=== PATIENT | female | born 1960 | race Caucasian/White ===

== ENCOUNTER 2019-11-15 14:57 | Outpatient (CLI) | payer BC, SELFPAY ==
--- NOTE | 2019-11-15 10:58 | DI.RAD_ITS ---
EXAM: XR CHEST 2V PA LATERAL CLINICAL HISTORY: SUPRACLAVICULAR LYMPHADENOPATHY, R59.0 TECHNIQUE: 2D digital imaging was performed. COMPARISON: No exams were available for comparison FINDINGS: The heart is not enlarged. The lungs are clear and well expanded. No pleural effusion seen. Mediastin al contours appear intact. IMPRESSION: Normal chest In the presence suspected supraclavicular lymphadenopathy, additional evaluation with neck and chest CT should be considered for further evaluation.
== END 2019-11-15 15:17 ==
PROVIDERS: PCP Physician Assistant; Visit Provider Physician Assistant
DX: R59.0 Localized enlarged lymph nodes (principal)
CPT/HCPCS: 71046

== ENCOUNTER 2019-12-30 01:54 | Outpatient (CLI) | payer BC, SELFPAY ==
--- NOTE | 2019-12-30 | DI.CT_ITS ---
EXAM: CT NECK W CLINICAL HISTORY: SUPRACLAVICULAR LYMPHADENOPATHY,R59.0. TECHNIQUE: Imaging Protocol: Axial computed tomography images with coronal and sagittal reformatted images were created and reviewed. CONTRAST MATERIAL: Intravenous: Omnipaque 350 Contrast volume:100 mL COMPARISON: No exams were available for comparison FINDINGS: Orbits and orbital soft tissues: Within normal limits. Visualized paranasal sinuses: Within normal limits. Nasopharynx: Within normal limits. Oropharynx: There are few calcifications seen bilaterally in the peritonsillar region likely reflecti ng tonsilliths. Hypopharynx: Within normal limits. Larynx: Within normal limits. Retropharyngeal space: Within normal limits. Parotids/submandibular: Within normal limits. Thyroid gland: 0.9 cm round hypodense solid nodule in the left lobe of the thyroid gland. Lymphadenopathy: Enlarged right supraclavicular lymph nodes are seen. The largest measures 2.7 x 1. 4 cm. The next largest measures 1.3 x 0.6 cm. There is a round 0.7 cm left submandibular lymph node . No other enlarged lymph nodes are seen in the neck. Trachea: Within normal limits. Lung apices: Emphysematous changes in the lung apices. Bones: Degenerative changes in the cervical and upper thoracic spine. Carotids/Jugular: Atherosclerosis. Mild narrowing at the origin of the left internal carotid artery . Soft tissues: Within normal limits. IMPRESSION: 1. Enlarged right supraclavicular lymph nodes. The largest measures 2.7 x 1.4 cm. 2. Pulmonary emphysema. 3. 0.9 cm solid hypodense nodule in the left lobe of the thyroid gland. Nonemergent thyroid ultrasou nd may be obtained for further evaluation. RADIATION DOSE DELIVERED: 255.94mGy.cm Total DLP 255.94mGy.cm Total DLP DATA REPOSITORY: All CT scans at this facility are submitted to the National Radiology Data Registry (NRDR) Dose Index Registry (DIR) with the [employer] ([employer]). RADIATION OPTIMIZATION: All CT scans at this facility use at least one of these dose optimization te chniques: automated exposure control; mA and/or kV adjustment per patient size (includes targeted exa ms where dose is matched to clinical indication); or iterative reconstruction.
[2019-12-30] MEDS: Omnipaque 350 MG/ML 100 ML BTL IJ (13:54)
[2019-12-30] MEDS: Normal Saline - Diluent 50 ML VIAL IV (13:55)
[2019-12-30] MEDS: Normal Saline Flush 10 ML SYR IVP (13:55)
== END 2019-12-30 02:14 ==
PROVIDERS: PCP Physician Assistant; Visit Provider Physician Assistant
DX: R59.0 Localized enlarged lymph nodes (principal); J43.9 Emphysema, unspecified; E04.1 Nontoxic single thyroid nodule; N25.9 Disorder resulting from impaired renal tubular function, unspecified
CPT/HCPCS: 70491; 82565; J3490

== ENCOUNTER 2020-01-13 12:02 | Outpatient (REF) | payer BC, SELFPAY ==
--- NOTE | 2020-01-13 11:00 | SOFT_PTH ---
PATIENT: Tamela Centeno LOC: [facility] U#:[id number] AGE/SX: 59/F ROOM: RE01/13/[address]: Tamela Granger MD : 1960 BED: DIS: 01/13/2020 SPEC #: [id number] RECD: 01/13/20 13:02 STATUS: KARLA REQ #: [id number] CARLY: 01/13/20 11:[address]: Tamela Granger DEPT: Surgical Specimen RECD BY: Ena Tilley ENTERED: 01/13/20 13:03 SP TYPE: SOFT OTHR DR: Martell Shipman Tissues: 1 - SOFT TISSUE MISC (INC. LIPOMA) Procedures: GROSS AND MICRO LEVEL 3 Comments: [id number] (SAMPLE SUBMITTED IN FORMALIN) (QNS ~ INSUFFICIENT IN QUANTITY FOR DIAGNOSIS)
== END 2020-01-13 12:22 ==
LOC: LBN 12:02
PROVIDERS: PCP Physician Assistant; Visit Provider Surgery
DX: R22.1 Localized swelling, mass and lump, neck (principal)
CPT/HCPCS: 88304

== ENCOUNTER 2020-01-28 07:10 | Outpatient (CLI) | payer BC, SELFPAY ==
[2020-01-29 20:40] LABS: COVID-19 RT-PCR Result NEGATIVE (Negative)
== END 2020-01-28 07:30 ==
PROVIDERS: PCP Physician Assistant; Visit Provider Surgery
DX: Z01.818 Encounter for other preprocedural examination (principal)
CPT/HCPCS: U0003

== ENCOUNTER 2020-01-31 08:24 | Day surgery (SDC) | payer BC, SELFPAY ==
[2020-01-31 08:42] VITALS: BP 122/70; PULSE 63; RESP 16; TEMP 36.7; O2SAT 98
[2020-01-31] MEDS: Lactated Ringers 1,000 ML 80 ML IV (09:26)
--- NOTE | 2020-01-31 10:10 | W.PM.DSUDISC ---
Discharge Plan Disposition Patient Disposition: HOME Condition: Good Discharge Details Reason For Visit: Excision right groin lymph node Attending Provider: Tamela Granger Primary Care Provider: Martell Shipman Home Meds and New Rx's Prescriptions: Continued bisoprolol fumarate 5 mg tablet 5 mg PO DAILY RF: 0 lisinopril 10 mg tablet 10 mg PO DAILY RF: 0 vitamin B complex Capsule 1 cap PO DAILY RF: 0 cholecalciferol (vitamin D3) 100 mcg (4,000 unit) capsule 100 mcg PO DAILY RF: 0 Discharge Instructions Additional Instructions: The top bandage can be removed tomorrow. The steri strips will usually stick for about a week. When the edges start to curl up, they can be removed. It is okay to shower tomorrow, the water can run over the steri strips Do not swim or soak in a tub for two weeks Call for any concerns including fever, incision redness or drainage. A small amount of fluid is normal under the incision but call if it becomes bothersome or does not resolve after a few weeks. May use Tylenol alternating with ibuprofen for pain control. Ice is also an option. The maximum dose for Tylenol is 4000 mg/day. May use ibuprofen 800 mg every 8 hours as needed. My office will contact you with biopsy results. Follow up as needed in the office. Activity:: Activity as Tolerated Remove Dressings/Wound Care:: 24 hours Shower/Bathe:: 24 hours Diet:: As Tolerated Discharge Orders Discharge Orders: Discharge Order (Routine); Ordered 01/31/20 Ordered By: Tamela Granger DS: Diagnosis Discharge Diagnosis (1) Lymphadenopathy: Status: Acute
[2020-01-31] MEDS: CLINDAMYCIN 600 MG/50 ML BAG 100 MG IVPB (10:11)
[2020-01-31] MEDS: Lidocaine 1% Multi-Dose 50 ML VIAL (10:20)
--- NOTE | 2020-01-31 10:38 | LYM_PTH ---
PATIENT: Tamela Centeno LOC: [facility] U#:[id number] AGE/SX: 59/F ROOM: RE01/31/[address]: Tamela Granger MD : 1960 BED: DIS: 01/31/2020 SPEC #: [id number] RECD: 01/31/20 12:54 STATUS: KARLA REQ #: [id number] CARLY: 01/31/20 10:[address]: Tamela Granger DEPT: Surgical Specimen RECD BY: Ena Tilley ENTERED: 01/31/20 12:54 SP TYPE: LYM OTHR DR: Martell Shipman Tissues: 1 - LYMPH NODE BIOPSY 2 - FLOW CYTOMETRY NODE/TISSUE Procedures: GROSS AND MICRO LEVEL 4 IMMUNOPEROXIDASE STAIN FLOW CYTOMETRY LYMPHOMA PNL Comments: [id number] (FLOW CYTOMETRY - [id number])
[2020-01-31 11:15] VITALS: BP 88/59; PULSE 54; RESP 14; TEMP 36.5; O2SAT 98
--- NOTE | 2020-01-31 14:08 | W.PM.OP ---
Date of service: 01/31/20 Operative Note Operative Note DATE OF PROCEDURE: 01/31/20 PRE-OP DIAGNOSIS: Lymphadenopathy POST-OP DIAGNOSIS: other (Right groin lymphadenopathy) PROCEDURE: Excision right groin lymph node SURGEON: Tamela Granger ANESTHESIA: MAC and local Indications: This 59-year-old woman presented with an enlarged right supraclavicular lymph node. Fine-needle aspiration did not yield enough tissue for diagnosis. Since then she is also developed bilateral groin lymphadenopathy. Procedure Description: The patient was placed supine on the operating table. The right groin lymph node was the easiest to access so her right groin was prepped and draped sterilely. The node was located just above the groin crease. Skin was infiltrated with local anesthetic and an incision made. Subcutaneous tissue was divided with cautery. Camila's fascia was divided. The node was quite superficial. This was excised with a combination of cautery dissection and scissors. Any lymphatics or vascular branches going to the lymph node were clipped. The node was sent fresh to pathology. The lab had been contacted earlier in the day. There is good hemostasis. The skin was closed with a running 4 Monocryl subcuticular stitch. She tolerated the procedure well and was stable to recovery.
== END 2020-01-31 11:57 | disposition home or self-care (01) ==
PROVIDERS: PCP Physician Assistant; Visit Provider Surgery
PROC: (CPT 38531; principal; 2020-01-31 10:15)
DX: C82.15 Follicular lymphoma grade II, lymph nodes of inguinal region and lower limb (principal)
CPT/HCPCS: 38531; 88305; 88184; 88185; 88361; J1885; J2001; J2405; J2704

== ENCOUNTER 2020-01-31 10:59 | Day surgery (SDC) | payer BC, SELFPAY | END 2020-01-31 11:19 | PROVIDERS: PCP Physician Assistant; Visit Provider Surgery | DX: R69 Illness, unspecified (principal) ==

== ENCOUNTER 2020-04-08 01:21 | Outpatient (RCR) | payer BC, SELFPAY ==
[2020-03-25 07:28] LABS: Abs Immature Grans 0.02 10^3/uL (0.0-0.06); Absolute Basophil Count 0.05 10^3/uL (0.0-0.2); Absolute Eosinophil Count 0.17 10^3/uL (0.0-0.7); Absolute Lymphocyte Count 0.18 10^3/uL (1.2-3.4); Absolute Monocyte Count 0.38 10^3/uL (0.1-0.8); Absolute Neutrophil Count 4.91 10^3/uL (1.2-6.7); Basophils % 0.9; HCT 37.9 % (36.0-46.0); HGB 13.1 g/dL (11.2-15.7); Immature Grans % 0.4; Lymphocytes % 3.2; MCH 32.1 pg (27.0-33.0); MCHC 34.6 % (32.0-36.0); MCV 92.9 fL (80-95); MPV 11.4 fL (8.0-11.0); Monocytes % 6.7; Neutrophils % 85.8; Nucleated RBC 0 %; Platelet Count 158 10^3/uL (130-400); RBC 4.08 10^6/uL (3.93-5.22); RDW 13.8 % (11.7-14.6); RDW-SD 46.7 fL; WBC 5.71 10^3/uL (4.4-10.8)
[2020-03-25] MEDS: Normal Saline Flush 10 ML SYR IVP (07:30)
[2020-03-25] MEDS: Heparin 500 UNITS/5 ML SYRINGE IV (07:30)
[2020-03-25 07:46] LABS: ALT 26 U/L (14-59); AST 22 U/L (15-37); Alkaline Phosphatase 74 U/L (46-116); BUN 17 mg/dL (7-18); CO2 20.7 mmol/L (21.0-32.0); CREATININE 0.83 mg/dL (0.55-1.02); Glucose 107 mg/dL (74-106); LDH 255 U/L (81-234); Total Protein 6.7 g/dL (6.4-8.2)
[2020-03-25 08:28] LABS: Anion Gap 14.3 mmol/L (3-11); Calcium 8.5 mg/dL (8.5-10.1); Chloride 99 mmol/L (98-107); Potassium 3.2 mmol/L (3.5-5.1)
[2020-03-25 08:55] LABS: Sodium 134 mmol/L (136-145)
[2020-04-08 07:49] LABS: Abs Immature Grans 0.05 10^3/uL (0.0-0.06); Absolute Basophil Count 0.14 10^3/uL (0.0-0.2); Absolute Eosinophil Count 0.03 10^3/uL (0.0-0.7); Absolute Lymphocyte Count 0.85 10^3/uL (1.2-3.4); Absolute Monocyte Count 0.76 10^3/uL (0.1-0.8); Absolute Neutrophil Count 7.28 10^3/uL (1.2-6.7); Basophils % 1.5; Eosinophils % 0.3; HCT 41.9 % (36.0-46.0); HGB 13.4 g/dL (11.2-15.7); Immature Grans % 0.5; Lymphocytes % 9.3; MCH 30.9 pg (27.0-33.0); MCV 96.8 fL (80-95); MPV 9.6 fL (8.0-11.0); Monocytes % 8.3; Neutrophils % 80.1; Nucleated RBC 0 %; Platelet Count 391 10^3/uL (130-400); RBC 4.33 10^6/uL (3.93-5.22); RDW 14.6 % (11.7-14.6); RDW-SD 51.5 fL; WBC 9.11 10^3/uL (4.4-10.8)
[2020-04-08 08:01] LABS: ALT 18 U/L (14-59); AST 14 U/L (15-37); Albumin 3.5 g/dL (3.4-5.0); Alkaline Phosphatase 107 U/L (46-116); Anion Gap 7.9 mmol/L (3-11); BUN 15 mg/dL (7-18); Bilirubin, Total 0.6 mg/dL (0.2-1.0); CO2 27.1 mmol/L (21.0-32.0); CREATININE 0.94 mg/dL (0.55-1.02); Chloride 101 mmol/L (98-107); Glucose 121 mg/dL (74-106); LDH 185 U/L (81-234); Potassium 4.7 mmol/L (3.5-5.1); Sodium 136 mmol/L (136-145); Total Protein 7.4 g/dL (6.4-8.2)
[2020-04-08] MEDS: Normal Saline Flush 10 ML SYR IVP (08:13)
== END 2020-04-20 23:59 | disposition home or self-care (01) ==
LOC: INF 01:21
PROVIDERS: PCP Physician Assistant; Visit Provider Internal Medicine Hematology & Oncology
DX: C82.18 Follicular lymphoma grade II, lymph nodes of multiple sites (principal); Z45.2 Encounter for adjustment and management of vascular access device
CPT/HCPCS: 36591; 80053; 83615; 85025

== ENCOUNTER 2020-05-06 01:13 | Outpatient (RCR) | payer BC, SELFPAY ==
[2020-05-06] MEDS: Normal Saline Flush 10 ML SYR IVP (07:36)
[2020-05-06 07:44] LABS: Abs Immature Grans 0.04 10^3/uL (0.0-0.06); Absolute Basophil Count 0.05 10^3/uL (0.0-0.2); Absolute Eosinophil Count 0.21 10^3/uL (0.0-0.7); Absolute Lymphocyte Count 0.59 10^3/uL (1.2-3.4); Absolute Monocyte Count 0.72 10^3/uL (0.1-0.8); Absolute Neutrophil Count 6.23 10^3/uL (1.2-6.7); Basophils % 0.6; Eosinophils % 2.7; HCT 40.8 % (36.0-46.0); HGB 13.5 g/dL (11.2-15.7); Immature Grans % 0.5; Lymphocytes % 7.5; MCH 32.5 pg (27.0-33.0); MCHC 33.1 % (32.0-36.0); MCV 98.1 fL (80-95); MPV 10.1 fL (8.0-11.0); Monocytes % 9.2; Neutrophils % 79.5; Nucleated RBC 0 %; Platelet Count 235 10^3/uL (130-400); RBC 4.16 10^6/uL (3.93-5.22); RDW 15.9 % (11.7-14.6); RDW-SD 58.1 fL; WBC 7.84 10^3/uL (4.4-10.8)
[2020-05-06 08:07] LABS: ALT 20 U/L (14-59); AST 15 U/L (15-37); Albumin 3.8 g/dL (3.4-5.0); Alkaline Phosphatase 103 U/L (46-116); Anion Gap 5.9 mmol/L (3-11); BUN 11 mg/dL (7-18); Bilirubin, Total 0.5 mg/dL (0.2-1.0); CO2 28.1 mmol/L (21.0-32.0); CREATININE 0.79 mg/dL (0.55-1.02); Calcium 8.6 mg/dL (8.5-10.1); Chloride 102 mmol/L (98-107); Glucose 110 mg/dL (74-106); LDH 161 U/L (81-234); Potassium 4.2 mmol/L (3.5-5.1); Sodium 136 mmol/L (136-145); Total Protein 6.8 g/dL (6.4-8.2)
== END 2020-05-21 23:59 | disposition home or self-care (01) ==
LOC: INF 01:13
PROVIDERS: PCP Physician Assistant; Visit Provider Internal Medicine Hematology & Oncology
DX: C82.18 Follicular lymphoma grade II, lymph nodes of multiple sites (principal); Z45.2 Encounter for adjustment and management of vascular access device
CPT/HCPCS: 36591; 80053; 83615; 85025

== ENCOUNTER 2020-06-03 04:09 | Outpatient (RCR) | payer BC, SELFPAY ==
[2020-06-03] MEDS: Normal Saline Flush 10 ML SYR IVP (07:31)
[2020-06-03 07:43] LABS: Abs Immature Grans 0.03 10^3/uL (0.0-0.06); Absolute Basophil Count 0.06 10^3/uL (0.0-0.2); Absolute Lymphocyte Count 0.53 10^3/uL (1.2-3.4); Absolute Monocyte Count 0.62 10^3/uL (0.1-0.8); Absolute Neutrophil Count 8.85 10^3/uL (1.2-6.7); Basophils % 0.6; Eosinophils % 1.9; HCT 39.3 % (36.0-46.0); HGB 13.2 g/dL (11.2-15.7); Immature Grans % 0.3; Lymphocytes % 5.2; MCHC 33.6 % (32.0-36.0); MCV 98.3 fL (80-95); MPV 10.1 fL (8.0-11.0); Nucleated RBC 0 %; Platelet Count 275 10^3/uL (130-400); RDW 15.3 % (11.7-14.6); RDW-SD 55.4 fL; WBC 10.29 10^3/uL (4.4-10.8)
[2020-06-03 07:56] LABS: ALT 20 U/L (14-59); AST 13 U/L (15-37); Albumin 3.4 g/dL (3.4-5.0); Alkaline Phosphatase 101 U/L (46-116); Anion Gap 7.9 mmol/L (3-11); BUN 13 mg/dL (7-18); Bilirubin, Total 0.6 mg/dL (0.2-1.0); CO2 27.1 mmol/L (21.0-32.0); CREATININE 0.74 mg/dL (0.55-1.02); Calcium 8.3 mg/dL (8.5-10.1); Chloride 104 mmol/L (98-107); Glucose 103 mg/dL (74-106); LDH 147 U/L (81-234); Sodium 139 mmol/L (136-145); Total Protein 6.7 g/dL (6.4-8.2)
== END 2020-06-21 23:59 | disposition home or self-care (01) ==
LOC: INF 04:09
PROVIDERS: PCP Physician Assistant; Visit Provider Internal Medicine Hematology & Oncology
DX: C82.18 Follicular lymphoma grade II, lymph nodes of multiple sites (principal); Z45.2 Encounter for adjustment and management of vascular access device
CPT/HCPCS: 36591; 80053; 83615; 85025

== ENCOUNTER 2020-09-23 10:38 | Outpatient (RCR) | payer BC, SELFPAY ==
[2020-09-23 11:00] LABS: Abs Immature Grans 0.02 10^3/uL (0.0-0.06); Absolute Basophil Count 0.07 10^3/uL (0.0-0.2); Absolute Eosinophil Count 0.26 10^3/uL (0.0-0.7); Absolute Lymphocyte Count 0.59 10^3/uL (1.2-3.4); Absolute Monocyte Count 0.79 10^3/uL (0.1-0.8); Absolute Neutrophil Count 5.72 10^3/uL (1.2-6.7); Basophils % 0.9; Eosinophils % 3.5; HCT 40.9 % (36.0-46.0); HGB 13.9 g/dL (11.2-15.7); Immature Grans % 0.3; Lymphocytes % 7.9; MCH 34.3 pg (27.0-33.0); MPV 10.2 fL (8.0-11.0); Monocytes % 10.6; Neutrophils % 76.8; Nucleated RBC 0 %; Platelet Count 270 10^3/uL (130-400); RBC 4.05 10^6/uL (3.93-5.22); RDW 13.6 % (11.7-14.6); WBC 7.45 10^3/uL (4.4-10.8)
[2020-09-23] MEDS: Normal Saline Flush 10 ML SYR IVP (11:00)
[2020-09-23] MEDS: Heparin 500 UNITS/5 ML SYRINGE (11:00)
[2020-09-23 11:23] LABS: ALT 20 U/L (14-59); AST 15 U/L (15-37); Albumin 3.9 g/dL (3.4-5.0); Alkaline Phosphatase 120 U/L (46-116); Anion Gap 7.9 mmol/L (3-11); BUN 14 mg/dL (7-18); Bilirubin, Total 0.6 mg/dL (0.2-1.0); CO2 28.1 mmol/L (21.0-32.0); CREATININE 0.7 mg/dL (0.55-1.02); Chloride 105 mmol/L (98-107); Glucose 101 mg/dL (74-106); LDH 170 U/L (81-234); Potassium 4.1 mmol/L (3.5-5.1); Sodium 141 mmol/L (136-145)
== END 2020-10-19 23:59 | disposition home or self-care (01) ==
LOC: INF 10:38
PROVIDERS: PCP Physician Assistant; Visit Provider Internal Medicine Hematology & Oncology
DX: C82.18 Follicular lymphoma grade II, lymph nodes of multiple sites (principal); Z45.2 Encounter for adjustment and management of vascular access device
CPT/HCPCS: 36591; 80053; 83615; 85025

== ENCOUNTER 2020-12-23 02:41 | Outpatient (RCR) | payer BC, SELFPAY ==
[2020-12-23] MEDS: Heparin 500 UNITS/5 ML SYRINGE IV (11:07)
[2020-12-23] MEDS: Normal Saline Flush 10 ML SYR IVP (11:07)
[2020-12-23 11:15] LABS: Abs Immature Grans 0.03 10^3/uL (0.0-0.06); Absolute Basophil Count 0.05 10^3/uL (0.0-0.2); Absolute Eosinophil Count 0.16 10^3/uL (0.0-0.7); Absolute Lymphocyte Count 0.71 10^3/uL (1.2-3.4); Absolute Monocyte Count 0.78 10^3/uL (0.1-0.8); Absolute Neutrophil Count 6.24 10^3/uL (1.2-6.7); Basophils % 0.6; HCT 43.4 % (36.0-46.0); HGB 14.7 g/dL (11.2-15.7); Immature Grans % 0.4; Lymphocytes % 8.9; MCH 34.1 pg (27.0-33.0); MCHC 33.9 % (32.0-36.0); MCV 100.7 fL (80-95); MPV 10.3 fL (8.0-11.0); Monocytes % 9.8; Neutrophils % 78.3; Nucleated RBC 0 %; Platelet Count 283 10^3/uL (130-400); RBC 4.31 10^6/uL (3.93-5.22); RDW 13.4 % (11.7-14.6); RDW-SD 50.5 fL; WBC 7.97 10^3/uL (4.4-10.8)
[2020-12-23 11:28] LABS: ALT 17 U/L (14-59); AST 14 U/L (15-37); Albumin 3.9 g/dL (3.4-5.0); Alkaline Phosphatase 124 U/L (46-116); Anion Gap 9.1 mmol/L (3-11); BUN 15 mg/dL (7-18); Bilirubin, Total 0.8 mg/dL (0.2-1.0); CO2 25.9 mmol/L (21.0-32.0); CREATININE 0.7 mg/dL (0.55-1.02); Calcium 9.1 mg/dL (8.5-10.1); Chloride 105 mmol/L (98-107); Glucose 134 mg/dL (74-106); LDH 169 U/L (81-234); Potassium 3.9 mmol/L (3.5-5.1); Sodium 140 mmol/L (136-145); Total Protein 7.3 g/dL (6.4-8.2)
== END 2021-01-19 23:59 | disposition home or self-care (01) ==
LOC: INF 02:41
PROVIDERS: PCP Physician Assistant; Visit Provider Internal Medicine Hematology & Oncology
DX: C82.18 Follicular lymphoma grade II, lymph nodes of multiple sites (principal); Z45.2 Encounter for adjustment and management of vascular access device
CPT/HCPCS: 36591; 80053; 83605; 83615; 83625; 85025

== ENCOUNTER 2021-07-26 13:44 | Outpatient (REF) | payer BC, SELFPAY ==
--- NOTE | 2021-07-26 13:15 | PAPFT_PTH ---
PATIENT: Tamela Centeno LOC: [facility] U#:[id number] AGE/SX: 61/F ROOM: RE07/26/[address]: Fiorella Villeda : 1960 BED: DIS: 07/26/2021 SPEC #: [id number] RECD: 07/26/21 17:50 STATUS: LEOctaviano REQ #: [id number] CARLY: 07/26/21 13:[address]: Fiorella Villeda DEPT: [facility] Cytology RECD BY: Ena Tilley ENTERED: 07/26/21 17:51 SP TYPE: PAPFT OTHR DR: Martell Shipman Tissues: 1 - CX/ENDOCX FOR PAP SMEARS Procedures: PAP THIN PREP/UVM Screening HPV DNA PROBE Comments: [id number]
== END 2021-07-26 13:45 | disposition home or self-care (01) ==
LOC: LBN 13:44
PROVIDERS: PCP Physician Assistant; Visit Provider Obstetrics & Gynecology Gynecology
DX: Z12.4 Encounter for screening for malignant neoplasm of cervix (principal); Z11.51 Encounter for screening for human papillomavirus (HPV)
CPT/HCPCS: 88142; 87624

== ENCOUNTER 2021-09-01 02:26 | Outpatient (CLI) | payer BC, SELFPAY | END 2021-09-01 02:27 | disposition home or self-care (01) | LOC: LBO 02:26 | PROVIDERS: PCP Physician Assistant; Visit Provider Surgery ==

== ENCOUNTER → 2022-03-23 01:40 | Outpatient (CLI) | payer BC, SELFPAY ==
--- NOTE | 2022-03-23 11:00 | DI.NM_ITS ---
Exam(s) NM HEPATOBILIARY CCK GRP EXAM: NM HEPATOBILIARY CCK GRP CLINICAL HISTORY: ABD PAIN R10.9. TECHNIQUE: Injected dose: 5 mCi Tc-99 mebrofenin Initial dynamic images: 60 minutes Post-Gallbladder fillin.7 CCK intravenously over a 30min infusion. Additional images: 30 minute dynamic during CCK administration. COMPARISON: No exams were available for comparison FINDINGS: Normal hepatic transit time. Prompt excretion into the small bowel. Prompt excretion into the gallbladder. The patient experienced moderate left-sided abdominal pain du ring CCK and infusion. Gallbladder ejection fraction: 74 percent IMPRESSION: Normal gallbladder ejection fraction. SNM guidelines: Gallbladder visualization should be present by 3 hours. Delayed wvfrdae-aj-flbmg transit beyond 60 min raises the suspicion for partial common bile duct (CBD) obstruction. Gallbladder ejection fraction <35% has a good correlation with acalculous disease (i.e., chronic acal culous cholecystitis, cystic duct syndrome, sphincter of Oddi disease).
== END ==
PROVIDERS: PCP Physician Assistant; Visit Provider Surgery
DX: R10.9 Unspecified abdominal pain (principal)
CPT/HCPCS: 78227

== ENCOUNTER 2022-07-12 02:19 | Outpatient (CLI) | payer BC, SELFPAY ==
--- NOTE | 2022-07-12 13:00 | NS.NUTBLAN_ITS ---
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 Tamela reports that she lost 80% of her small intestine on 05/15/22. Weight at time of surgery around 100 lbs. Discharged in May from [facility] at 85 lbs. Weight today: 96 lbs BMI: 17.5. Usual Body Weight: 105 lbs TPN Solution: 176 g carbs, 95 g protein, 60 g fat- runs 7 p to 7 a. Provides 1520 kcal Diet Recall: eggs and toast, sandwich and soup, pasta and chicken. Food Record for 7 days averages about 1100 kcal, 45 g protein, 45 g fat. Supplements with pedialite and Ensure. Estimated Needs: 1670 kcal (BEE x 1.2), 67 g protein (1.2g pro/kg IBW), 1800 ml fluid Tamela has gained about 14 lbs since discharging from [facility] last month. She reports poor appetite as expected with TPN providing 100% of nutrient needs. She reports having a solid stool today. No longer has diarrhea. No issues with digesting meals. No longer taking lomotil. Continues with cholestyramine- 2 packets daily. Tamela's small bowel has started to take over needed absorption of nutrient/fluids. At this time, recommend decreasing TPN to 50% or run only 6 hours to provide total of 740 kcal, 45 g protein, 30 g fat. Continue with current meal plan. Meal plan and reduced TPN will provide about 1840 kcal, 90 g protein, 55 g fat and should lead to continued weight gain. Goal weight of 105-110 lbs. Recommend continue with 50% reduction in TPN for next 4 weeks. If continues to gain weight, will then be able to discontinue with TPN and transition to only PO intake. Reviewed homemade recipes for eletrolyte supplementation and protein shakes. Left message for dietitian at [facility] [place] and my recommendations. Will follow up with Tamela weekly by phone and review weight, po intake.
--- NOTE | 2022-07-27 10:43 | TELEFU_ITS ---
Date of service: 07/27/22 Time of Service: 10:43 Nutrition Note NOTE: Spoke to Tamela. She is in contact with [facility] and [facility] for follow up re: RAULN. Tamela to call typewriter assembly and parts inspector if needs additional support. Time Spent in Nutritional Counseling and Treatment: 0
--- NOTE | 2022-07-27 10:43 | W.NUTRFU ---
Date of service: 07/27/22 Time of Service: 10:43 Nutrition Note NOTE: Spoke to Tamela. She is in contact with [facility] and [facility] for follow up re: RAULN. Tamela to call property underwriter if needs additional support. Time Spent in Nutritional Counseling and Treatment: 0
== END 2022-07-12 02:20 | disposition home or self-care (01) ==
LOC: DS 02:19
PROVIDERS: PCP Physician Assistant; Visit Provider Dietitian, Registered
DX: E44.1 Mild protein-calorie malnutrition (principal); K91.2 Postsurgical malabsorption, not elsewhere classified; Z71.3 Dietary counseling and surveillance
CPT/HCPCS: 97802

== ENCOUNTER 2022-07-19 12:29 | Outpatient (REF) | payer BC, SELFPAY ==
[2022-07-19 16:01] LABS: Bilirubin Negative (Negative); Blood Negative (Negative); Clarity Clear (Clear); Glucose Negative (Negative); Ketones Negative (Negative); Leukocyte Esterase Negative (Negative); Nitrite Negative (Negative); Specific Gravity >= 1.030 (1.005-1.025); Urobilinogen 0.2 mg/dL (Up to 0.2); pH 5.5 (5-8)
== END 2022-07-19 12:30 | disposition home or self-care (01) ==
LOC: NCHCN 12:29
PROVIDERS: PCP Physician Assistant; Visit Provider Nurse Practitioner Family
DX: R10.31 Right lower quadrant pain (principal); R35.0 Frequency of micturition
CPT/HCPCS: 81003

== ENCOUNTER → 2023-06-07 10:17 | Outpatient (BNVA) | payer MEDICARE, SELFPAY | PROVIDERS: PCP Internal Medicine; Referring Provider Internal Medicine; Visit Provider Surgery | DX: Z45.2 Encounter for adjustment and management of vascular access device (principal) | CPT/HCPCS: 36590 ==

== ENCOUNTER → 2023-10-24 08:25 | Outpatient (BNVA) | payer MEDICARE, SELFPAY | PROVIDERS: PCP Internal Medicine; Referring Provider Internal Medicine; Visit Provider Surgery | DX: Z12.11 Encounter for screening for malignant neoplasm of colon (principal); K64.8 Other hemorrhoids ==

== ENCOUNTER 2024-01-10 07:43 | Day surgery (SDC) | payer MEDICARE, SELFPAY ==
--- NOTE | 2024-01-09 19:52 | W.PREOPHP ---
Assessment and Plan Assessment and plan (1) Encounter for screening colonoscopy: Status: Acute Assessment and plan: We reviewed the plan for screening colonoscopy and possible internal hemorrhoid banding today. She had no new questions or concerns. History of Present Illness History of Present Illness Chief Complaint: screening colonoscopy Narrative: She was referred here today for screening colonoscopy. Her last one was in 2008. Aside from some internal hemorrhoids, the colonoscopy was otherwise normal. In the interim, she obviously did have lymphoma, and to the best of her knowledge she is currently in remission. She does have some occasional blood on the toilet paper that seems to be most consistent with internal hemorrhoids. Otherwise she denies any significant melena or other worrisome GI symptoms. She denies any family history of colon or rectal cancers. PFSH All Active Problems Encounter for screening colonoscopy (Acute) Encounter for removal of tunneled central venous catheter (CVC) with port (Acute) Deficiency of other specified B group vitamins (Acute) RUQ abdominal pain (Acute) Encounter for gynecological examination (Acute) Follicular lymphoma (Acute) Lymphadenopathy (Acute) Grade III internal hemorrhoids (Acute) Hyperglycemia (Acute) Depressive disorder (Chronic) Fibromyalgia (Acute) Nicotine dependence (Acute) Essential hypertension (Acute) Supraclavicular lymphadenopathy (Acute) Medical History Osteoporosis Hydroureteronephrosis Dyspepsia Kidney stone Surgical History History of cholecystectomy History of insertion of tunneled central venous catheter (CVC) with port removed H/O colonoscopy (~03/2009) History of appendectomy Social History (Updated 07/26/21 @ 19:26 by Fiorella Villeda MD) Smoking/Tobacco Use Status: Current every day Tobacco Type: cigarettes Years smoked: 45 Quit status: not considering quitting Counseling given: counseling >3 minutes Smoking risk assessment performed?: Yes Alcohol Intake: never Details: pt is in the pre-contemplative stage of tobacco cessation. Drug use: Daily Substance use type: marijuana Household members: spouse and other Details: Jewel x 40yrs Housing: house Number of Children: 0 current occupation: housekeeping for older individuals. Do you think of yourself as: straight/heterosexual Additional Social history: UTAP Female Reproductive History Menstrual Menopause type: natural (4yrs ago) History History 0 Para Hx # Term Pregnancies Multiple births Hx # Pregnancies Ectopic pregnancies AB induced Hx Number of Living Children AB spontaneous Meds Allergies and Home Medications Allergies Allergy/AdvReac Type Severity Reaction Status Date / Time Penicillins Allergy Unknown as child Verified 01/10/24 08:44 unsure cashews Allergy Severe throat Uncoded 01/10/24 08:44 itching tegaderm Allergy Severe Itching Uncoded 01/10/24 08:44 Home Medications ?Medication ?Instructions ?Recorded ?Confirmed ?Type bisoprolol fumarate 5 mg tablet 5 mg PO DAILY 01/07/20 01/10/24 History cholecalciferol (vitamin D3) 100 100 mcg PO DAILY 01/07/20 01/10/24 History mcg (4,000 unit) capsule vitamin B complex 1 cap PO DAILY 01/07/20 01/10/24 History hydroxyzine HCl 25 mg tablet 25 mg PO QHS PRN 07/21/21 01/10/24 History denosumab 60 mg/mL subcutaneous 60 mg subcut [id number] 05/23/23 01/10/24 History syringe (Prolia) folic acid 1 mg tablet 1 mg PO DAILY 05/23/23 01/10/24 History magnesium 250 mg tablet 250 mg PO DAILY 05/23/23 01/10/24 History mecobalamin (vitamin B12) 1,000 1,000 mcg PO DAILY 05/23/23 01/10/24 History mcg chewable tablet potassium chloride 20 mEq 20 meq PO DAILY 05/23/23 01/10/24 History tablet,extended release aspirin 81 mg capsule 81 mg PO DAILY 10/24/23 01/10/24 History Exam Const General: cooperative, healthy appearing and not in acute distress Neck Neck: normal visual inspection, no lymphadenopathy and supple Resp Effort & Inspection: normal respiratory effort Auscultation: clear to auscultation bilaterally Cardio Jugular venous pressure: no JVD Rate: regular rate Rhythm: regular rhythm Heart Sounds: S1 normal and S2 normal GI Inspection: normal to inspection Palpation: soft, no guarding, no hernias and nontender Percussion: normal to percussion Auscultation: normal bowel sounds Neuro General: patient alert, patient awake and patient oriented x3 Psych Appearance: grossly normal
--- NOTE | 2024-01-09 19:54 | W.PM.DSUDISC ---
Date of service: 01/10/24 Time of Service: 10:19 Discharge Plan Disposition Patient Disposition: Home Condition: Good Discharge Details Reason For Visit: screening colonsocopy Attending Provider: Asim Harden Primary Care Provider: Teresita Martinez Home Meds and New Rx's Prescriptions: Continued aspirin 81 mg capsule 81 mg PO DAILY bisoprolol fumarate 5 mg tablet 5 mg PO DAILY vitamin B complex Capsule 1 cap PO DAILY cholecalciferol (vitamin D3) 100 mcg (4,000 unit) capsule 100 mcg PO DAILY hydroxyzine HCl 25 mg tablet 25 mg PO QHS PRN folic acid 1 mg tablet 1 mg PO DAILY mecobalamin (vitamin B12) 1,000 mcg tablet,chewable 1,000 mcg PO DAILY magnesium 250 mg tablet 250 mg PO DAILY potassium chloride 20 mEq tablet extended release 20 meq PO DAILY Prolia 60 mg/mL syringe 60 mg subcut [id number] Discontinued polyethylene glycol 3350 17 gram/dose powder 238 g PO ONCE Qty: 238 0RF Rx Instructions: take per colonoscopy instructions bisacodyl [Dulcolax (bisacodyl)] 5 mg tablet,delayed release (DR/EC) 5 mg PO ONCE Qty: 4 0RF Rx Instructions: take per colonoscopy instructions Discharge Instructions Instructions: Hemorrhoids, Colon polyps, Diverticulosis, High-fiber diet Additional Instructions: Tamela, we are able to complete your colonoscopy today without any difficulty. I did find 1 polyp, which I removed today. This will be sent off for testing, and once I know the nature of the polyp, that information will be used to guide the timing of your next colonoscopy. Incidentally, you do have some internal hemorrhoids like we discussed before hand. However, these are little bit low, and I do worry that banding them might be quite uncomfortable. He also have quite a bit of diverticulosis, which are weak spots in the muscular part of the muscular part of the colon wall that formed little pockets or pouches in which stool accumulates. I think that adding supplemental fiber to your diet will be helpful for both your diverticulosis as well as your hemorrhoids. I usually recommend Metamucil, but any product that contains psyllium would be just fine. Whichever product you choose, please be sure to check the label to help with appropriate dosing. People should be eating about 25 to 30 g of fiber per day. When supplementing a typical diet, patients typically need several tablespoons of the fiber supplement to meet the usual goals. Once I have the report from the polyp analysis, the office will be in touch with any other recommendations. If your hemorrhoids do become quite bothersome, we could always go back in and do the banding or other hemorrhoid procedure with the assistance of stronger anesthetic, or nerve blocks to help keep you comfortable. 1. If tolerated, consume a soft, low fiber diet for 1-2 days. 2. Do not drive, drink alcohol, operate machinery, make critical decisions, or do activities that require coordination or balance for 24 hours. 3. Because air was put into your colon during the procedure, expelling air from your rectum (passing gas or farting) is normal. 4. You may not have a bowel movement for 1-3 days because of the colonoscopy prep. This is normal. 5. Go directly to the emergency room if you notice any of the following: Develop chills (warm to touch), or if you have a thermometer and your temperature is above 101 Difficulty breathing or difficultly swallowing Persistent vomiting Severe abdominal pain, other than gas cramps Severe chest pain Black, tarry stools Any bleeding ? exceeding one tablespoon 6. Call your physician if the site where your intravenous was started becomes red, swollen, painful, and warm to touch. 7. Your physician has reviewed your pre-procedure medications. Please continue to take those medications as previously ordered. You will be given specific information/education regarding any changes to your medications before leaving. Activity:: Activity as Tolerated Diet:: As Tolerated Discharge Orders Discharge Orders: Discharge Order (Routine); Ordered 01/09/24 Ordered By: Asim Harden DS: Diagnosis Discharge Diagnosis (1) Encounter for screening colonoscopy: Status: Acute
--- NOTE | 2024-01-09 19:56 | W.COLOREPORT ---
Date of service: 01/10/24 Time of Service: : Colonoscopy Report Date of procedure: 01/10/24 Pre-op diagnosis general: screening colonoscopy Post-op diagnosis procedure note: other (Rectal polyp, diverticulosis, internal hemorrhoids) Procedure: colonoscopy with polypectomy Surgeon: Asim Harden Anesthesia Type: General:No Airway Estimated blood loss (mL): 5 Pathology: other (0.5 cm rectal polyp) Complications: None Disposition: same day Indications: Tamela is a 63 year old woman who needs her next screening colonosocopy. She also has some occasional hematochezia that seems consistent with hemorrhoids. Prep: Miralax/Dulcolax Procedure Start Time: 09:45 Procedure End Time: 10:13 Retraction Time: 11 Findings: 0.5 cm rectal polyp, sigmoid diverticulosis, internal hemorrhoids Procedure Description: After the induction of anesthesia, and with the patient in left lateral decubitus position, I began by performing an external anorectal exam.? Perineum and skin were normal, as was the anal verge.? There are some external hemorrhoids.? Next, I performed a digital rectal exam.? I did not appreciate any abnormal findings.? Next, I advanced a colonoscope into the rectal vault.? I performed retroflexion.? There are internal hemorrhoids that are quite low in the rectal vault in proximity to the dentate line.? Using insufflation, I then advanced the colonoscope beyond the rectal folds and into the sigmoid colon before advancing towards the cecum.? There is extensive sigmoid diverticulosis. Great care was taken to maintain the true lumen of the colon.? The scope was noted to be in the cecum by identification of the ileocecal valve and appendiceal orifice.? I then began withdrawing the colonoscope using repeated irrigation as necessary for full evaluation of the colonic mucosa. ?Once the scope was withdrawn to the level of the rectum, great care was taken to examine portions of the rectal folds. In the upper portion of the rectal vault was a 0.5 cm rectal polyp. This was removed with cold forcep polypectomy. There was minimal bleeding. Finally, the scope was withdrawn and the patient was brought to the same-day surgery recovery unit as the anesthetic wore off. ?The findings and instructions were shared with the patient prior to discharge. [place] Bowel Prep [place] Bowel Prep Right Colon: 2 Left Colon: 2 Transverse Colon: 2 Total Score: 6
[2024-01-10 08:42] VITALS: BP 122/89; PULSE 62; RESP 16; TEMP 36.6; O2SAT 98
[2024-01-10] MEDS: Lactated Ringers 1,000 ML 80 ML IV (09:15)
[2024-01-10 09:24] VITALS: BMI 16.6
--- NOTE | 2024-01-10 09:24 | W.ANESPRE ---
General Info Date of Service Date Performed: 01/10/24 Height: 5 ft 0.5 in Weight: 39.2 kg Body Mass Index (BMI): 16.6 Surgical Procedure: Operation Date: 01/10/24 09:10 Proposed Procedure Side Surgeon p Colonoscopy Asim Harden MD s Possible Hemorrhoid Banding Asim Harden MD Actual Procedure Side Surgeon p Colonoscopy Asim Harden MD Meds Allergies and Home Medications Allergies Allergy/AdvReac Type Severity Reaction Status Date / Time Penicillins Allergy Unknown as child Verified 01/10/24 08:44 unsure cashews Allergy Severe throat Uncoded 01/10/24 08:44 itching tegaderm Allergy Severe Itching Uncoded 01/10/24 08:44 Home Medication ?Medication ?Instructions ?Recorded bisoprolol fumarate 5 mg tablet 5 mg PO DAILY 01/07/20 cholecalciferol (vitamin D3) 100 100 mcg PO DAILY 01/07/20 mcg (4,000 unit) capsule vitamin B complex 1 cap PO DAILY 01/07/20 hydroxyzine HCl 25 mg tablet 25 mg PO QHS PRN 07/21/21 denosumab 60 mg/mL subcutaneous 60 mg subcut [id number] 05/23/23 syringe (Prolia) folic acid 1 mg tablet 1 mg PO DAILY 05/23/23 magnesium 250 mg tablet 250 mg PO DAILY 05/23/23 mecobalamin (vitamin B12) 1,000 1,000 mcg PO DAILY 05/23/23 mcg chewable tablet potassium chloride 20 mEq 20 meq PO DAILY 05/23/23 tablet,extended release aspirin 81 mg capsule 81 mg PO DAILY 10/24/23 Current Visit Medications: Current Medications Generic Name Dose Route Start Last Admin Trade Name Freq PRN Reason Stop Dose Admin Ringer's Solution 1,000 mls @ 80 mls/hr 01/10/24 06:00 01/10/24 09:15 IV 02/08/24 23:59 80 mls/hr INFUSION ALISTAIR Administration IV Miscellaneous Supplies 1 each 01/10/24 06:00 Iv Access IV 02/08/24 23:59 DIRECTED ALISTAIR Ondansetron HCl 4 mg 01/09/24 19:58 Ondansetron 4 Mg/2 Ml Vial IVP 02/08/24 19:57 Q4H PRN PRN Nausea / Vomiting Sodium Chloride 0 ml 01/10/24 06:00 Normal Saline Flush 10 Ml Syr IV 02/08/24 23:59 PRN PRN Sodium Chloride 0 ml 01/10/24 06:00 Normal Saline 10 Ml Vial IJ 02/08/24 23:59 DIRECTED PRN Sterile Water 0 ml 01/10/24 06:00 Water,Injection,Sterile 10 Ml Vial IJ 02/08/24 23:59 DIRECTED PRN PFSH Active Problems Active Problems: Problem Status Onset Code Encounter for screening colonoscopy Acute Z12.11 Encounter for removal of tunneled central venous catheter (CVC) with port Acute Z45.2 Deficiency of other specified B group vitamins Acute E53.8 RUQ abdominal pain Acute R10.11 Encounter for gynecological examination Acute Z01.419 Follicular lymphoma Acute C82.90 Lymphadenopathy Acute R59.1 Grade III internal hemorrhoids Acute K64.2 Hyperglycemia Acute R73.9 Depressive disorder Chronic F32.9 Fibromyalgia Acute M79.7 Nicotine dependence Acute F17.200 Essential hypertension Acute I10 Supraclavicular lymphadenopathy Acute R59.0 Medical History Medical History Osteoporosis Hydroureteronephrosis Dyspepsia Kidney stone Surgical History Surgical History History of cholecystectomy History of insertion of tunneled central venous catheter (CVC) with port removed H/O colonoscopy (~03/2009) History of appendectomy Tobacco Smoking/Tobacco Use Status: Current every day Tobacco Type: cigarettes Years smoked: 45 Counseling given: counseling >3 minutes Alcohol Alcohol Intake: never Details: pt is in the pre-contemplative stage of tobacco cessation. Substance Use Substance use: Daily Substance use type: marijuana Prental History History 0 Para Hx # Term Pregnancies Multiple births Hx # Pregnancies Ectopic pregnancies AB induced Hx Number of Living Children AB spontaneous Vital Signs and Lab Results Vital Signs Most Recent Vital Signs in EMR: Most Recent Vital Signs Temp Pulse Resp BP Pulse Ox 36.6 C 62 16 122/89 98 01/10/24 08:42 01/10/24 08:42 01/10/24 08:42 01/10/24 08:42 01/10/24 08:42 Lab Results Blood Type / Crossmatch: No Data to Display Complete Blood Count: No Data to Display Complete Metabolic Panel: No Data to Display Liver Function Panel: No Data to Display Coagulation Panel: No Data to Display Cardiac Panel: No Data to Display Arterial Blood Gas: No Data to Display Venous Blood Gas: No Data to Display Pancreas Panel: No Data to Display Thyroid Panel: No Data to Display Infectious Disease: No Data to Display Blood Cultures: No Data to Display Toxicology Panel: No Data to Display Anesthesia Assessment and Plan Anesthesia History Personal History: No History of Anesthesia Complications Family History: No Family History of Anesthesia Complications Exercise Tolerance Exercise Tolerance: Metabolic Equivalents>4 Pertinent Negatives Pertinent Negatives: No Symptoms of GERD Cardiac & Pulmonary Exam Cardiac Exam: Normal S1/S2 Heart Sounds Pulmonary Exam: Clear Bilateral Breath Sounds Implantable Cardiac Device Does patient have a Pacemaker or an ICD?: No Airway Exam Known Difficult Airway: No Mallampati Class: 2 Mouth Opening: Normal (> 3cm) Thyromental Distance: Greater than 3 cm Neck Range of Motion: Full ROM Neck Circumference: Normal Teeth Condition: Normal Dentition ASA Classification ASA Score: ASA 2 Emergency Case?: No NPO Status NPO Status: NPO Clears >2 hours, Solids >8 hours Anesthesia Plan Resuscitation Status: Full Code Anesthesia Technique: General Anesthesia Airway Planned: Natural Airway Monitors Used: Standard Monitors
--- NOTE | 2024-01-10 10:12 | BOWEL_PTH ---
PATIENT: Tamela Centeno LOC: [facility] U#:[id number] AGE/SX: 63/F ROOM: RE01/10/[address]: Asim Harden MD : 1960 BED: DIS: 01/10/2024 SPEC #: [id number] RECD: 01/10/24 13:06 STATUS: KARLA REKavita #: [id number] CARLY: 01/10/24 10:[address]: Asim Harden DEPT: Surgical Specimen RECD BY: Ena Tilley ENTERED: 01/10/24 13:07 SP TYPE: Bowel OTHR DR: Teresita Martinez Tissues: 1 - BIOPSY BOWEL Procedures: GROSS AND MICRO LEVEL 4 Comments: [id number]
[2024-01-10 10:20] VITALS: BP 104/71; PULSE 63; RESP 15; TEMP 36.2; O2SAT 100
--- NOTE | 2024-01-10 10:35 | W.ANESPOSTOP ---
Postoperative Evaluation Date, Time and Location Date Performed: 01/10/24 Time Performed: 10:35 Patient Location: Day Surgery Unit Vital Signs Most Recent Imported Vital Signs: Most Recent Vital Signs Temp Pulse Resp BP Pulse Ox 36.6 C 62 16 122/89 98 01/10/24 08:42 01/10/24 08:42 01/10/24 08:42 01/10/24 08:42 01/10/24 08:42 Pain Score Most Recent Pain Score: Most Recent Pain Score Pain Level 0 01/10/24 08:42 Assessment Mental Status: Awake (Alert & Oriented to Patient Baseline) Airway and Respiratory Function: Patent airway with normal (patient baseline) respiratory exam Cardiovascular Function: Hemodynamically Stable Hydration Status: Adequately Hydrated Nausea & Vomiting: No Nausea or Vomiting Pain: Pt. Denies Any Pain Peripheral Nerve Block: Patient did not receive a nerve block
[2024-01-10 10:55] VITALS: BP 130/83; PULSE 62; RESP 16; TEMP 36.2; O2SAT 98
== END 2024-01-10 11:20 | disposition home or self-care (01) ==
LOC: SUR 07:43
PROVIDERS: PCP Internal Medicine; Visit Provider Surgery
PROC: 0DJD8ZZ Inspection of Lower Intestinal Tract, Via Natural or Artificial Opening Endoscopic (ICD-10-PCS; CPT 45378; principal; 2024-01-10 09:00)
DX: Z12.11 Encounter for screening for malignant neoplasm of colon (principal); K57.30 Diverticulosis of large intestine without perforation or abscess without bleeding; K62.1 Rectal polyp; K64.8 Other hemorrhoids
CPT/HCPCS: 45380; 88305; J2001; J2704